=== PATIENT | female | born 1980 | race Caucasian/White ===

== ENCOUNTER → 2017-02-16 | Day surgery (SDC) | payer OTHER ==
[~2017-02-16] VITALS: Ht 162.6 cm; Wt 90.7 kg
[~2017-02-16] MED LIST: NASACORT16.9 ML; NUVARING VAGIN1 EACH VG; ZYRTEC10 M3 PO
--- NOTE | 2017-02-23 10:54 | Operative Report ---
Operative/Inv Procedure Report Surgery Date: 02/16/17 Name of Procedure: Left knee arthroscopically-assisted ACL reconstruction with hamstring autograft Pre-Operative Diagnosis: Left ACL tear Post-Operative Diagnosis: Left ACL tear Estimated Blood Loss: less than 50ml Surgeon/Sports Physician: DIANA COLES,BOBBY Ordnoez MD, Anesthesia: laryngeal mask airway, block Implants: [employer]ite[employer] Intrafix System Size 8 autograft 8mm femoral sheath and 7mm femoral screw Small tibial sheath and 6-8mm tibial screw Drains: None Specimens: None Tourniquet: 118min Complications: None Condition: Stable Operative/Procedure Note Note: INDICATION FOR PROCEDURE: Ms. Barrera is a 36 year-old female who presented to clinic with left knee pain following a ski injury. She felt her knee buckle while trying to stop on the slopes, and had persistent difficulty with instability and swelling following the injury. X-rays were negative for fracture, but MRI showed a high grade partial ACL tear with only a few intact fibers and bone bruising consistent with ACL deficiency. After discussing the risks, benefits, and alternatives to ACL reconstruction, the patient has opted to proceed with surgery using hamstring autograft. She has also elected for contralateral left graft harvest instead of allograft shoulder her left knee hamstring tendons be insufficient in size. OPERATIVE REPORT: iBjal Barrera arrived at [facility] on 02/16/2017. She was met in the pre-operative area, where her medical history was reviewed and her operative extremity was marked. A regional nerve block was then performed via ultrasound guidance by the Anesthesia team. She was then taken into the operating room and placed supine on the OR table. A time-out procedure was performed in the which the patient, operative extremity, and procedure were verified. She was induced under general anesthesia and mitesh-operative antibiotics were administered. A non -sterile tourniquet was applied to the left upper thigh, and the left leg was prepped and draped in the usual sterile fashion. An esmarch bandage was used to exsanguinate the leg and the tourniquet was raised to 300mmHg. With the knee in flexion, a standard inferolateral portal was created with an #11 blade. The arthroscope was introduced and the knee brought into extension. There was no cartilage fraying or injury noted in the patellofemoral joint. No loose bodies were seen in the medial or lateral gutters. With the knee in flexion, an inferomedial portal was created after localization with a spinal needle. This allowed for introduction of a shaver into the knee, which was used to debride the anterior fat pad for better visualization. In the notch, the ACL was noted to be deficient with an empty wall sign. There were still some intact fibers superiorly in the notch. The remaining deficient ACL tissue was debrided from the femoral condyle and the tibial footprint. The knee was taken into extension with a valgus load to evaluate the medial compartment. The cartilage of the femoral condyle and tibial plateau was in good condition, and the meniscus was intact. The leg was then taken into the [id number] position for evaluation of the lateral compartment. No meniscal pathology was seen, the cartliage of the femoral condyle and tibial plateau was intact, and the popliteus tendon was noted and in good condition. The arthroscope was removed from the knee. An 5cm incision was made over the anteromedial tibia, one finger breadth medial to the tibial tubercle, centered 6cm below the medial joint line. This was taken through the skin, subcutaneous tissues, and down to fascia. The sartorial fascia overlying the pes anserinus was identified, and a reverse L incision was made in the fascia and elevated. The gracilis and semitendinosis tendons were identified and dissected off the fascia. A #2 orthocord was whipstitched in the distal gracilis and a #5 ethibond in the distal semitendinosis. Fasical bands were carefully removed and each tendon harvested using a closed tendon stripper. They were taken to the back table for preparation. Excess muscle was removed and the tendons were trimmed. The corresponding #2 and #5 sutures were whip-stitched into the proximal tendon ends. The tendons were then folded over a passing stitch and passed through sizers. The doubled graft measured 8mm in diameter. The tendons were unfolded and the midpoint of each graft was marked. A 0 vicryl sutures was tied around the tendon, extending 22mm on either side of the midpoint. The graft was again folded over a #5 ethibond passing suture and tension on a graft table to 15-20lbs of tension. The graft was wrapped in vancomycin-soaked gauze. The left knee was then brought back into flexion and the arthroscope reintroduced into the knee. An accessory medial portal was created after localization with a spinal needle. This was verified with the knee at 90 deg and in hyperflexion to ensure access to the medial wall of the lateral femoral condyle without contacting the medial femoral condyle. A 6.5mm offset guide was used to verify the position of the femoral tunnel, which coinsided with the residual ACL tissue intentionally left in place. The beath pin was passed free- hand from medial to lateral across the lateral femoral condyle with the knee in hyperflexion. The pin was noted to exit the lateral distal femur in the middle of the IT band. The medial femoral condyle was protected with a skid, and a partially-fluted 9mm reamer was passed into the knee. A femoral tunnel was drilled to a depth of 28mm, which appeared to perforate the lateral femoral cortex. The bone debris was removed and a passing stitch was pulled into position via the beath pin. The knee was then taken back to 90 degrees. A tibial guide set at 45 degrees was passed through the standard medial portal and positioned in the middle of the ACL footprint, in line with the anterior horn of the lateral meniscus. The pin was then drilled to meet the guide, followed by drilling with a fully-fluted 8mm reamer. Again, bone and soft tissue debris was removed with a large shaver. The passing stitch was brought from the femoral tunnel through the tibial tunnel. The graft sutures were passed through the passing stitch and pulled out the lateral leg. The graft was then carefully positioned and pulled throught the tibial tunnel, into the knee, and then into the femoral tunnel. The markings on the graft verified it's position in the tunnel, and both ends of the sutures were held to prevent the graft from moving. The knee was again taken into hyperflexion. Via the accessory medial portal, a dilator was passed above the graft into the tunnel and gently malleted down. The sheath was then placed and gently tapped until it was flush with wall. Next , a nitinol wire was passed followed by the interference screw. The nitinol wire was removed once the screw had adequate bite. The graft was held in position to prevent movement during interference fixation. The screw was placed with excellent purchase. The graft was then tension from the tibial sutures and noted to hold well. The graft was in an excellent position within the knee and did not impinge with knee extension, verified with the arthroscope. The arthroscope was then removed from the knee. The sutures of the graft ends were knotted 5" from the aperature of tibia tunnel. The sutures were placed over a tensioning device and the knee cycled. With the knee in full extension and maximal tension placed via the device, the tibial dilator was gently malleted in , followed by the small tibial sheath and a 6-8mm screw. This has excellent purchase, and following fixation the patient had a negative Chiquita's exam. The tourniquet was released after 118min. The wounds were copiously irrigated with saline with bacitracin. The femoral sutures were cut at the skin and the tibial sutures and excess graft were removed with a knife. The sartorial fascial flap was sutured back to the tibial using 0 vicryl sutures. The tibial incision was closed in layers using 0 vicryl , 2-0 vicryl, and a running 3-0 prolene. The prolene was also used to close the three portals. Steri strips were applied to the incision and xeroform to the portals. The incisions were covered with gauze and ABD pads, and secured with steril webril. An JEFF bandage was then applied from foot to mid-thigh. The patient was then extubated and taken from the OR to the recovery room in stable condition.
== END ==
LOC: STS 00:50
DX: S83.512A Sprain of anterior cruciate ligament of left knee, initial encounter (principal); Y93.23 Activity, snow (alpine) (downhill) skiing, snowboarding, sledding, tobogganing and snow tubing
CPT/HCPCS: 81025; J0131; J0690; J1100; J2250; J2405; J3370